=== PATIENT | female | born 1965 | race Caucasian/White ===

== ENCOUNTER → 2024-03-03 10:52 | Outpatient (REF) | payer OTHER, SELFPAY | LOC: RAD 10:52 | PROVIDERS: ATTENDING PHYSICIAN Internal Medicine Critical Care Medicine; FAMILY PHYSICIAN Family Medicine | DX: R91.1 Solitary pulmonary nodule (principal) | CPT/HCPCS: 71250 ==

== ENCOUNTER → 2024-04-17 13:36 | Outpatient (REF) | payer OTHER, SELFPAY | LOC: HWRAD 13:36 | PROVIDERS: ATTENDING PHYSICIAN Internal Medicine Critical Care Medicine; FAMILY PHYSICIAN Family Medicine | DX: R91.1 Solitary pulmonary nodule (principal) | CPT/HCPCS: 71250 ==

== ENCOUNTER 2024-04-23 06:13 | Day surgery (SDC) | payer OTHER, SELFPAY ==
[2024-04-16 08:37] LABS: Hematocrit 39.6 % (37.0-47.0); Hemoglobin 13.4 g/dL (12.0-16.0); Mean Corp Hgb Conc. 33.8 g/dL (33.0-37.0); Mean Corpuscular Hgb 30.9 pg (27.0-31.0); Mean Corpuscular Volume 91.2 fL (81.0-99.0); Platelet Count 406 10^3/uL (130-400); Red Blood Cell Count 4.34 10^6/uL (4.20-5.40)
[2024-04-16 08:48] LABS: INR 0.87; PT 12.1 Sec (11.4-14.6)
[2024-04-16 09:07] LABS: Blood Urea Nitrogen 17 mg/dl (7-17); Carbon Dioxide 24 mmol/L (22-30); Chloride 103 mmol/L (98-107); Glucose 95 mg/dl (70-99); Potassium 4.7 mmol/L (3.5-5.1); Sodium 139 mmol/L (135-145); eGFR > 60.00
[2024-04-16 13:37] VITALS: BMI 21.0
[2024-04-23 08:30] VITALS: BMI 20.2
[2024-04-23 08:35] VITALS: BP 167/96
[2024-04-23 08:47] VITALS: BMI 20.2
[2024-04-23 10:31] VITALS: BP 143/76; BP 167/96
[2024-04-23 10:45] VITALS: BP 139/84
[2024-04-23 11:24] VITALS: BP 143/74
[2024-04-23 11:41] VITALS: BP 150/81
== END 2024-04-23 11:42 | disposition home or self-care (01) ==
LOC: SDS 06:13
PROVIDERS: ATTENDING PHYSICIAN Internal Medicine Critical Care Medicine; FAMILY PHYSICIAN Family Medicine
DX: R91.1 Solitary pulmonary nodule (principal); R59.0 Localized enlarged lymph nodes; C34.11 Malignant neoplasm of upper lobe, right bronchus or lung
CPT/HCPCS: 31629; 31624; 31623; 31627; 31654; 88173; 88305; 36415; 71045; 76000; 80048; 81459; 85027; 85610; 85730; 87015; 87070; 87102; 87116; 87205; 88112; 88333; 88341; 88342; 93005; C1887

== ENCOUNTER 2024-06-11 08:02 | Inpatient (IN) | payer OTHER, SELFPAY ==
[2024-06-04 08:31] VITALS: BMI 21.3
[2024-06-04 09:08] LABS: % Basophils 1.3 % (0-2); % Eosinophils 1.5 % (0-6); % Immature Granulocytes 0.3 % (0-0.5); % Lymphocytes 19.5 % (20.5-51.1); % Monocytes 6.9 % (1.7-9.3); % Neutrophils 70.5 % (42.2-75.2); Absolute Basophils 0.1 10^3/uL (0-0.2); Absolute Eosinophils 0.2 10^3/uL (0-0.7); Absolute Lymphocytes 2.1 10^3/uL (1.2-3.4); Absolute Monocytes 0.7 10^3/uL (0.1-0.6); Absolute Neutrophils 7.5 10^3/uL (1.4-6.5); Hematocrit 38.4 % (37.0-47.0); Hemoglobin 13.1 g/dL (12.0-16.0); Mean Corp Hgb Conc. 34.1 g/dL (33.0-37.0); Mean Corpuscular Hgb 30.9 pg (27.0-31.0); Mean Corpuscular Volume 90.6 fL (81.0-99.0); Mean Platelet Volume 9.5 fL (7.4-10.4); Nucleated Red Blood Cells % 0 %; Platelet Count 403 10^3/uL (130-400); Red Blood Cell Count 4.24 10^6/uL (4.20-5.40); Red Cell Dist. Width 12.9 % (11.5-14.5); White Blood Cell Count 10.7 10^3/uL (4.8-10.8)
[2024-06-04 09:08] LABS: Urine Albumin Negative (Neg - Trace); Urine Bilirubin Negative (Negative); Urine Character Clear (Clear); Urine Color Yellow; Urine Glucose Negative (Negative); Urine Ketone Negative (Negative); Urine Leukocyte Negative (Negative); Urine Nitrite Negative (Negative); Urine Occult Blood Negative (Negative); Urine Specific Gravity 1.005 (<1.030); Urine Urobilinogen Negative (Neg - 1+)
[2024-06-04 09:18] LABS: INR 0.96; PT 13.1 Sec (11.4-14.6)
[2024-06-04 09:19] LABS: APTT 31.3 Sec (23.4-35.0)
[2024-06-04 09:38] LABS: ALT (SGPT) 25 U/L (0-35); AST (SGOT) 32 U/L (14-36); Albumin 4.9 g/dl (3.5-5.0); Alkaline Phosphatase 92 U/L (38-126); Blood Urea Nitrogen 14 mg/dl (7-17); Calcium 10.3 mg/dl (8.4-10.2); Carbon Dioxide 27 mmol/L (22-30); Chloride 99 mmol/L (98-107); Direct Bilirubin 0.1 mg/dl (0.0-0.4); Estimated Creatinine Clearance 83 ml/min; Glucose 115 mg/dl (70-99); Potassium 4.8 mmol/L (3.5-5.1); Sodium 136 mmol/L (135-145); Total Protein 7.5 g/dl (6.3-8.2); eGFR > 60.00
--- NOTE | 2024-06-04 09:48 | CM ---
Chart reviewed. Met with the patient and her in PAT. Patient is a CT RN, independent of ADLS, lives with her in a 3 [address], 3 KATHYA, 0 DME. Reviewed preoperative and postoperative instructions and restrictions, along with showering
instructions. Gave patient 2 soaps. Patient is agreeable to a visit by CT Transitional Care RN. Plan is for the patient to return home with CT Transitional Care RN.
[2024-06-04 10:00] LABS: Glycohemoglobin (HgbA1c) 5.3 % (4.0-5.6)
[2024-06-11] VITALS (18 sets, daily range): BP systolic 101–174; BP diastolic 65–130; BMI 20.7
--- NOTE | 2024-06-11 08:45 | PTCARENOTE ---
PT admitted clipped & prep'd, admission completed, consents signed, h&P in chart, ABO sent to lab, awaiting OR call.
[2024-06-11] MEDS: BACTROBAN 2% OINTMENT 1 APPLIC NASAL (08:54)
--- NOTE | 2024-06-11 11:17 | W.CVOR.SURPR ---
CVOR Surgeon Immed Pre Op
-
I have examined this patient prior to performance of the scheduled procedure.
The patient's condition is unchanged from the time of the dictated/written History and
Physical and the patient is able to undergo the scheduled procedure.
RUL + Ln dissection
[2024-06-11 12:40] LABS: Urine Albumin 1+ (Neg - Trace); Urine Bilirubin Negative (Negative); Urine Character Clear (Clear); Urine Color Yellow; Urine Glucose Negative (Negative); Urine Ketone Negative (Negative); Urine Leukocyte Negative (Negative); Urine Nitrite Negative (Negative); Urine Occult Blood Negative (Negative); Urine Urobilinogen Negative (Neg - 1+)
[2024-06-11 12:57] LABS: Urine Bacteria Few (Negative); Urine Mucus Few; Urine Red Blood Cell 0-2 /HPF (0-2); Urine White Cell 0-2 /HPF (0-5)
[2024-06-11] MEDS: TYLENOL PO (14:43)
--- NOTE | 2024-06-11 14:43 | CON.INTV ---
Consultation
Consultation Request
Date/Time Consultation Requested: 06/11/2024 - 1430
Date/Time Consultation Performed: 06/11/2024 - 1440
Requesting Provider: JIMY Hunter
Performing Provider: Dr. Lui
Reason for Consultation: s/p right upper lobectomy
Medical History
-
Chief Complaint: Elective right upper lobectomy
History of Present Illness:
58-year-old female with a past medical history of right upper lobe pulmonary adenocarcinoma, hypertension, history of tobacco use and anxiety who presents for elective right upper lobectomy. Patient follows with us in the [facility] office with last
visit on 04/19/[address] Mary. A prior LDCT chest at [facility] revealed a 1.4 x 1.5 x 1.4 cm right upper lobe nodule. [facility] PET/CT on 03/22/2024 showed a 1 cm bilobed lesion within the posterior right upper lobe demonstrating
mild hypermetabolic activity which increases on delayed imaging and is suspicious for pulmonary malignancy. There was no mediastinal, hilar or axillary hypermetabolic activity. CT chest on 04/17/2024 showed interval increase in size of the
spiculated bilobed nodule in the posterior right upper lobe. Patient underwent a robotic bronchoscopy on 04/23/2024 and pathology of the RUL brushing, TBNA + TBBX were consistent with pulmonary adenocarcinoma. Patient saw CT surgery on 05/23/[address] Lee. She was continuing to smoke at that time. Surgical resection was discussed at that visit and patient agreed to this procedure. Today she underwent robotic assisted thoracic surgery right upper lobectomy with radical lymph node
dissection, with pexy of the right middle lobe to right lower lobe. Patient tolerated the procedure well with no complications and was transferred to the CVICU postoperatively, with power bender operator/pulmonary services consulted for additional
management/recommendations.
When I saw the patient, she had already been extubated in the PACU. She had some right-sided chest pain but was given pain medications and pain was now markedly improved. She is currently saturating 97% on 2 L/min nasal cannula, heart rate 87, BP
via A-line: 127/59 and BP via NIBP: 117/65. Patient's , Paulie, at bedside. All questions were answered. Patient was still lethargic from the procedure, but still easily arousable and answering my questions appropriately.
PMHx: Right upper lobe pulmonary adenocarcinoma diagnosed via robotic bronchoscopy on 04/23/2024, tobacco smoker, hypertension
PSHx: Laparotomy (1983)
Past Medical History
Past Medical History: Other (Above as per HPI)
Past Surgical History: Other (Above as per HPI)
Social History
Tobacco: Smoker (<0.5 PPD X 40 years)
Alcohol: Occasional (Wine + light beer socially during the weekend and sometimes during the week)
Drug: None
Personal:
Living: With Family
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
Family History
Family History: Cancer (Father: Colon cancer; mother: Right eye cancer s/p eye removal) and Hypertension (Mother)
Allergies / Home Medications
Allergies
Allergy/AdvReac Type Severity Reaction Status Date / Time
No Known Allergies Allergy Verified 05/30/24 15:27
Home Medications
�Medication �Instructions �Recorded �Confirmed �Last Taken �Type
alprazolam 0.25 mg tablet (Xanax) 0.25 mg PO BID Mental 05/30/24 05/30/24 Unknown History
Health/Anxiety
Review of Systems
-
History Source: Patient
All other systems: Negative unless noted
Vitals / Labs / Diagnostic Testing
Vital Signs
Temp Pulse Resp Pulse Ox
98.2 F 91 16 99
06/11/24 08:30 06/11/24 08:30 06/11/24 08:30 06/11/24 08:30
Lab Data
06/04/24 08:41
06/04/24 08:40
Diagnostic Testing:
Physical Exam
-
HEENT: Normocephalic and Anicteric
Cardiovascular: S1/S2 and Peripheral Edema (negative)
Respiratory: Wheeze (negative), Rales (negative), Rhonchi (negative), Non-Labored Respirations and Other (Right-sided chest tube X1)
GI: Soft, Non Distended, Non Tender and Normal Bowel Sounds
Neurology: Awake, Alert and Tremors (negative)
Skin: Warm and Dry
General: Respiratory Distress (negative), Pain (Right-sided chest pain), Chills (negative) and Sweats (negative)
Assessment
-
Assessment: 58-year-old female with a past medical history of right upper lobe pulmonary adenocarcinoma, hypertension, history of tobacco use and anxiety who presents for elective right upper lobectomy. Patient follows with us in the [facility] office
with last visit on 04/19/[address] Mary. A prior LDCT chest at [facility] revealed a 1.4 x 1.5 x 1.4 cm right upper lobe nodule. [facility] PET/CT on 03/22/2024 showed a 1 cm bilobed lesion within the posterior right upper lobe
demonstrating mild hypermetabolic activity which increases on delayed imaging and is suspicious for pulmonary malignancy. There was no mediastinal, hilar or axillary hypermetabolic activity. CT chest on 04/17/2024 showed interval increase in size
of the spiculated bilobed nodule in the posterior right upper lobe. Patient underwent a robotic bronchoscopy on 04/23/2024 and pathology of the RUL brushing, TBNA + TBBX were consistent with pulmonary adenocarcinoma. Patient saw CT surgery on
05/23/[address] Lee. She was continuing to smoke at that time. Surgical resection was discussed at that visit and patient agreed to this procedure. Today she underwent robotic assisted thoracic surgery right upper lobectomy with radical lymph
node dissection, with pexy of the right middle lobe to right lower lobe. Patient tolerated the procedure well with no complications and was transferred to the CVICU postoperatively, with power bender operator/pulmonary services consulted for additional
management/recommendations.
Chronic conditions ONLINE CONTENT DEVELOPER: Right upper lobe pulmonary adenocarcinoma diagnosed via robotic bronchoscopy on 04/23/2024, tobacco smoker, hypertension
Impression:
#Early-stage right upper lobe pulmonary adenocarcinoma diagnosed via robotic bronchoscopy on 04/23/2024 now s/p RATS-right upper lobectomy with radical LN dissection (POD #0)
#History of tobacco use
#Hypertension
#Anxiety
Plan:
Patient was extubated s/p procedure in the PACU
Titrate supplemental O2 flow rate to maintain SpO2 >90-94%
prn nebulized bronchodilators - not currently bronchospastic
Encourage incentive spirometer use q1hr while awake
Maintain MAP>65
Replete electrolytes with K>4, Mg>2
Monitor chest tube output (right pleural chest tube)
Pain control
Monitor hemoglobin
Monitor platelet count and coags
Transfuse blood products as needed to maintain Hb>7g/dL, plt>50k (given post-operative status)
CT surgery managing chest tubes
Monitor blood sugar to maintain euglycemia with goal BG 140-180
Would use ISS to maintain BG at goal as above
Aspiration precautions
DVT prophylaxis
Early nutrition
Early mobilization
Critical care statement: A total of 38 minutes of critical care time was provided for this patient today. This includes management of ventilator, spontaneous breathing trial, arterial blood gases, pressors, of unstable vital signs, evaluation of the
patient at bedside, reviewing the patient's pertinent medical records including radiographs, microbiology, laboratory evaluations, and discussion with primary team and critical care nursing.
--- NOTE | 2024-06-11 14:51 | W.PN.CT.SURG ---
CT Surgery Operative Note
-
THORACIC SURGERY OPERATIVE REPORT
Preoperative Diagnosis: Pulmonary adenocarcinoma with right upper lobe
Postoperative Diagnosis: Same
Procedure(s) Performed:
1. Robotic assisted thoracic surgery [RATS] right upper lobectomy
2. Radical lymph node dissection
3. Pexy of the right middle lobe to right lower lobe
4. Intercostal nerve block performed by anesthesia preoperatively
Date of Surgery: 06/11/2024
Comorbidities:
1. Pulmonary adenocarcinoma
2. Hypertension
3. History of smoking
4. Anxiety
Attending Surgeon: Raúl Lee MD, MS
Assistants: Raúl Emmanuel PA-C (present and necessary to first aid nurse, exchanging robotic instruments, retraction, suction, exposure, suture management, and wound closure under my direction)
Anesthesiology: Jed Gutierres MD and Nicole Curry CRNA
Scrub and Circulating RNs: Angela Ho RN, Tamra Araujo RN
Anesthesia: Dual Lumen GETA
EBL: 50 cc
Products: None
Indication(s) for Procedures: This is a 58-year-old female with a history of smoking who had an increase in size of a speculated bilobed nodule of the right upper lobe. Endoluminal bronchoscopy performed came back with pulmonary adenocarcinoma with
negative lymph nodes. She was referred to my office for surgical resection
Findings: There were no obvious intrathoracic lesions concerning for metachronous disease. She had beautifully developed oblique and horizontal fissures. The lung was dissected circumferentially starting at the inferior pulm ligament and working
clockwise. In order to gain exposure to the pulmonary confluence and the pulmonary arteries, the right upper lobe pulmonary veins were divided first. This was followed by division of a singular ascending branch and the truncus branch heading up
towards the right upper lobe. The bronchus was then clamped and test inflation performed demonstrated unobstructed flow to the remaining right lower lobe right middle lobes. At the conclusion of the case, there was no significant air leak in the
chamber and no loss on tidal volumes on ventilation.
Specimen(s):
Station 9, x 3 nodes
Station 10, x 2 nodes
Station 11, x 1 nodes
Station 7, x 1 nodes
Right Upper Lobe
Description of Procedure: The patient was taken to the operating room. Induction via general anesthesia with endotracheal intubation was performed and peripheral venous access and arterial monitoring were inserted. Their identity and procedure to be
performed were verified and they were positioned with the right side up on the operating table. The patient was then prepped and draped in a sterile fashion. A preoperative time-out was performed with all members of the team present. A Veress
needle was used to insufflate the chest after isolating the lung. An 8 mm port was placed in the midaxillary line at approximately the eighth intercostal space and confirmed to be intrathoracic without significant pulmonary injury. The chest was
surveyed for any evidence of metastatic disease. Patient tolerate insufflation without complication. 2 additional 12 mm trocars were placed on either side under camera guidance and a third 8 mm trocar was placed along the back. A 12 mm tax accounting assistant
port was placed in the 11th intercostal space above the insertion of the diaphragm.
The thoracic cavity was inspected for evidence of metastatic disease. None was observed. We started with mobilization of the inferior pulmonary ligament. We worked our way clockwise dissecting out the hilum and harvest any lymph nodes identified.
The fissure between the right upper and right middle lobe was developed using a green load stapler. The pulmonary arteries and veins leading to the right upper lobe were identified and skeletonized. They were sequentially divided with a white load
stapler. I clamped the bronchus and performed a test inflation which demonstrated unobstructed flow into the remaining right middle and right lower lobes. The specimen was displaced toward the apex while a chest tube was inserted and placed
laterally towards the apex. CoSeal was used to reinforce the staple lines and hilum. The right upper lobe was then placed into a specimen bag and extracted from the chest cavity. After confirming hemostasis, the lung was fully inflated and all
ports were removed. Incisions were closed in 3 layers including the fascia, dermal, and epidermis. Additional local anesthesia was injected into all incision sites. The skin wound was cleansed and sealed with Dermabond glue.
All instrument, sponge, and needle counts were confirmed to be correct x 2 at the end of the operation. The patient was transferred to the cardiac intensive care unit extubated in critical but stable condition.
I, Dr. Raúl Lee, was present, scrubbed for, and performed all critical elements of this procedure.
Raúl Lee MD, MS
Cardiothoracic Surgeon
[facility]
This operative dictation was created using the [employer] dictation system. Please excuse any grammatical, typographical, or 'sound alike' errors
[2024-06-11] MEDS: DEMEROL 12.5 MG IV (15:33)
[2024-06-11] MEDS: DILAUDID 0.5 MG IV ×5 (15:40→20:40)
[2024-06-11] MEDS: DILAUDID 0.25 MG IV ×2 (16:29→22:40)
[2024-06-11] MEDS: HEPARIN 5000 UNITS SC ×2 (17:25→23:46)
[2024-06-11] MEDS: NEURONTIN 100 MG PO ×2 (17:26→22:27)
--- NOTE | 2024-06-11 17:45 | PTCARENOTE ---
Pt received from PACU; AAOx3 Spontaneous response to RN, follows commands; Pupils round, reactive, and equal; NS rhythm on monitor; VSS; DP and radial pulses present; Lungs clear/diminished CTx1 to waterseal draining bloody drainage - no air leak,
tidaling, or crepitus noted; Normoactive BS; skinR chest puncture sights CDI; A-line in left radial artery - line zeroed and level; PIVx1; see worklist for detailed assessment
[2024-06-11] MEDS: ZOFRAN 4 MG IV (19:03)
[2024-06-11] MEDS: TORADOL 15 MG IV (20:01)
[2024-06-11] MEDS: ANCEF 5 IV (20:10)
[2024-06-11] MEDS: SENOKOT 8.6 MG PO (20:11)
[2024-06-11] MEDS: LOPRESSOR 12.5 MG PO (20:12)
[2024-06-11] MEDS: MYLICON 80 MG PO (20:54)
--- NOTE | 2024-06-11 21:00 | PTCARENOTE ---
Report received from Kj GRIMALDO. Walking rounds done. Pt with nausea. Zofran 4 mg IV at 1912-given. Pt helped to BSC to void 75 mls of clear, yellow urine. Pt helped back to bed. Bladder scanned for urine retention. No urine in bladder post void. Pt
c/o sharp 9/[address] site pain. Toradol 15 mg IV at 1999. Followed by Dilaudid 0.5 mg IV at 2039. Pt with continued, mild nausea. Simethicone given as ordered at 2049 (see JUN).
Pt awake, alert, oriented x 4. Speech clear. Moves all extremities with equal strength x 4. Pt was on 2L. Increased to 4L/NC due to sats in 80's while briefly on room air x 1. CDB, IS, and flutter valve encouraged. BBS present. More decreased to R
base. R lateral CT x 1. To water seal. + tidaling. No air leak. + crepitus adjacent to R superior anterior incision. Incisions x 4 to R post/anter-lateral chest REQUIREMENTS MANAGER, glued, approximated. Belly soft, round, nontender. Hypoactive bs x 4. at
bedside and went home for evening. Ongoing plan of care.
[2024-06-11] MEDS: TYLENOL 1000 MG PO (22:27)
[2024-06-11] MEDS: XANAX 0.25 MG PO (22:28)
[2024-06-12] VITALS (16 sets, daily range): BP systolic 98–159; BP diastolic 62–95; BMI 21.1
[2024-06-12] MEDS: DILAUDID 0.5 MG IV (00:26)
--- NOTE | 2024-06-12 00:30 | PTCARENOTE ---
Pt with continued sharp R lateral CP. Rating it 8/ pain. Dilaudid 0.25 mg IV at 2240. Pt also requested her Xanax 0.25 mg po. Given at 2228. Pt helped to BSC to void 50 mls urine. PA made aware of small void amounts. Pt helped back to bed. L
radial A-line d/c'ed per order and per protocol. Pressure dressing applied. CHG bath given. Pt with continued sharp R lat CP, 11/11. Discussed with KAMINI. Dilaudid 0.5 mg IV given at 0030. Pt attempting to go to sleep. Ongoing plan of care.
--- NOTE | 2024-06-12 01:09 | W.PN.CT ---
Today's Communication / Plan
-
Plan:
-No major issues overnight. Hemodynamically and neurologically intact
-Chest tube transitioned to water seal postop
-Remains on water seal, + tidaling, no air leak noted, drained 95/125 in 12/24hrs
-I cannot appreciate a ptx on CxR this AM on my review, follow up official report
-Will consider clamping chest tube today for possible d/c
-Wean off of o2
-Encourage smoking cessation
-OOB into chair/Ambulate
-F/U pathology
-D/C'd Lopressor and started on Toprol XL 12.5 QD d/t bradycardia of 49 bpm overnight
-Noted to be hyponatremic and hyperkalemic this AM, will give Lasix and repeat BMP, will consider Lokelma
Assessment / Plan
-
Assessment:
-S/p Robotic assisted thoracic surgery [RATS] right upper lobectomy/ Radical lymph node dissection/Pexy of the right middle lobe to right lower lobe, by Dr. Lee, 06/11/24, pod#1
-Pulmonary adenocarcinoma
-Hypertension
-Current tobacco abuse (stopped 2 wks prior to surgery, 0.5 PPD x 40 yrs)
-Anxiety
-S/p Laparotomy, 1983
-Acute postop hyponatremia,134
-Acute postop hyperkalemia, 5.7
Discussed patient care with: Nursing, Respiratory Therapy, Pharmacy and Care Team
Subjective
Procedure
-S/p Robotic assisted thoracic surgery [RATS] right upper lobectomy/ Radical lymph node dissection/Pexy of the right middle lobe to right lower lobe, by Dr. Lee, 06/11/24
-
Date of Service: June 12, 2024
Pt c/o incisional pain, otherwise feels well
Objective Data
-
PT 13.1 Sec (11.4-14.6) 06/04/24 08:40
INR 0.96 06/04/24 08:40
APTT 31.3 Sec (23.4-35.0) 06/04/24 08:40
Vital Signs
Vital Signs
Temp Pulse Resp BP Pulse Ox
98.6 F 73 24 129/70 99
06/11/24 23:00 06/12/24 00:00 06/12/24 00:00 06/12/24 00:00 06/12/24 00:00
CT Intake/Output/Weight
06/11/24 06/11/24 06/12/24
06:59 18:59 06:59
Intake Total 100 / 650 550 / 650
Output Total 30 / 225 195 / 225
Balance 70 / 425 355 / 425
SaO2: 99 (2L)
Physical Exam
-
General: Awake, Oriented and AOx3
Cardiovascular: Regular rate & rhythm, No Murmurs, No Rub and No Gallop
Respiratory: Decreased Breath Sounds (on right, otherwise clear)
Sternum: Stable
Incision: Clean, Dry, Intact and Dressing Intact
Extremities: No Edema
Data Reviewed
-
Lab Results: Results Reviewed
Medications: Active Meds Reviewed
Chest X-Ray: Report Reviewed and Image Reviewed
ECG: Report Reviewed and Image Reviewed
[2024-06-12] MEDS: ANCEF 5 IV ×2 (04:12→12:14)
[2024-06-12] MEDS: TORADOL 15 MG IV ×2 (04:13→12:34)
--- NOTE | 2024-06-12 04:30 | PTCARENOTE ---
Labs drawn and sent. IS and flutter valve done. IS peak 1250 mls. Toradol 15 mg IV for pain given.
[2024-06-12 05:29] LABS: Hematocrit 34.3 % (37.0-47.0); Hemoglobin 11.5 g/dL (12.0-16.0); Mean Corp Hgb Conc. 33.5 g/dL (33.0-37.0); Mean Corpuscular Hgb 31.1 pg (27.0-31.0); Mean Corpuscular Volume 92.7 fL (81.0-99.0); Mean Platelet Volume 9.9 fL (7.4-10.4); Platelet Count 332 10^3/uL (130-400); Red Cell Dist. Width 13.1 % (11.5-14.5); White Blood Cell Count 14.1 10^3/uL (4.8-10.8)
[2024-06-12 05:54] LABS: Blood Urea Nitrogen 19 mg/dl (7-17); Calcium 9.8 mg/dl (8.4-10.2); Carbon Dioxide 29 mmol/L (22-30); Chloride 100 mmol/L (98-107); Estimated Creatinine Clearance 81 ml/min; Glucose 114 mg/dl (70-99); Magnesium 2.2 mg/dl (1.6-2.3); Potassium 5.7 mmol/L (3.5-5.1); Sodium 134 mmol/L (135-145); eGFR > 60.00
[2024-06-12] MEDS: LASIX 40 MG IV (06:25)
[2024-06-12] MEDS: TYLENOL 1000 MG PO ×3 (06:26→22:06)
--- NOTE | 2024-06-12 07:15 | PTCARENOTE ---
Lasix 40 mg IV given per order of PA. CT clamped at 0615 per PA. Pt helped up to scale, weighed, then to recliner chair. Report to Amberly GRIMALDO this am.
--- NOTE | 2024-06-12 08:13 | W.PN.INTV ---
Today's Communication / Plan
Recommendations
Up OOB as tolerated
Pain control
Goal BG 140�180
Maintain SpO2 >90 this 94%
Follow-up right upper lobectomy pathology from 06/11/[address] chest imaging as dictated by oncology
Patient has been downgraded to CVICU�telemetry status; no additional recommendations at this time. Insurance Agency Manager/Pulmonary service will now sign off. Please reconsult if there are any additional questions/concerns, or if patient's respiratory status
deteriorates.
Assessment
-
Assessment: 58-year-old female with a past medical history of right upper lobe pulmonary adenocarcinoma, hypertension, history of tobacco use and anxiety who presents for elective right upper lobectomy. Patient follows with us in the [facility] office
with last visit on 04/19/[address] Mary. A prior LDCT chest at [facility] revealed a 1.4 x 1.5 x 1.4 cm right upper lobe nodule. [facility] PET/CT on 03/22/2024 showed a 1 cm bilobed lesion within the posterior right upper lobe
demonstrating mild hypermetabolic activity which increases on delayed imaging and is suspicious for pulmonary malignancy. There was no mediastinal, hilar or axillary hypermetabolic activity. CT chest on 04/17/2024 showed interval increase in size
of the spiculated bilobed nodule in the posterior right upper lobe. Patient underwent a robotic bronchoscopy on 04/23/2024 and pathology of the RUL brushing, TBNA + TBBX were consistent with pulmonary adenocarcinoma. Patient saw CT surgery on
05/23/[address] Lee. She was continuing to smoke at that time. Surgical resection was discussed at that visit and patient agreed to this procedure. On 06/11/2024, she underwent robotic assisted thoracic surgery right upper lobectomy with
radical lymph node dissection, with pexy of the right middle lobe to right lower lobe. Patient tolerated the procedure well with no complications and was transferred to the CVICU postoperatively, with iron worker apprentice/pulmonary services consulted for
additional management/recommendations.
Chronic conditions ACCOUNT SUPPORT REP: Right upper lobe pulmonary adenocarcinoma diagnosed via robotic bronchoscopy on 04/23/2024, tobacco smoker, hypertension
Impression:
#Early-stage right upper lobe pulmonary adenocarcinoma diagnosed via robotic bronchoscopy on 04/23/2024 now s/p RATS-right upper lobectomy with radical LN dissection (POD #1)
#History of tobacco use - quit on 05/23/2024
#Hypertension
#Anxiety
Plan:
Patient was extubated s/p procedure in the PACU on 06/11/2024
She is currently on room air � maintain SpO2 >90-94%
prn nebulized bronchodilators - not currently bronchospastic
Encourage incentive spirometer use q1hr while awake
Maintain MAP>65
Replete electrolytes with K>4, Mg>2
Monitor chest tube output (right pleural chest tube - to be removed today)
Pain control
Monitor hemoglobin
Monitor platelet count and coags
Transfuse blood products as needed to maintain Hb>7g/dL, plt>50k (given post-operative status)
CT surgery managing chest tubes
Follow-up pathology from the OR yesterday
Monitor blood sugar to maintain euglycemia with goal BG 140-180
Would use ISS to maintain BG at goal as above
Aspiration precautions
DVT prophylaxis
Early nutrition
Early mobilization
Patient has been downgraded to CVICU�telemetry status; no additional recommendations at this time. Insurance Agency Manager/Pulmonary service will now sign off. Thank you for allowing us to be involved in the care of this patient. Please reconsult if there
are any additional questions/concerns, or if patient's respiratory status deteriorates.
Total time spent today was 58 minutes for this encounter. Time includes reviewing laboratory test/imaging results, reviewing pertinent medical records, obtaining and reviewing medical history, performing an appropriate exam, ordering medications,
tests and procedures. Time also includes documentation of this encounter, coordinating patient care and communicating with other healthcare professionals. Total time does not include separately billed tests performed on this date of service.
Subjective Dataa
Subjective Data
Date of Service:
Date of Service: June 12, 2024
Chief Complaint: Insurance Agency Manager Follow Up
Subjective:
Patient was seen and evaluated today at bedside. She has some pain on the right side of her ribs. Heart rate 83, BP 143/85. On room air breathing comfortably, saturating 98%. She denies VEGA, abdominal pain, nausea, vomiting, fevers or chills.
Review of Systems
General: Other (Negative unless mentioned above)
Objective Data
Data Reviewed
Vital Signs / I&O / Oxygen:
Vital Signs
Temp Pulse Resp BP Pulse Ox
98.7 F 85 16 126/77 98
06/12/24 08:05 06/12/24 08:05 06/12/24 08:05 06/12/24 08:00 06/12/24 08:10
Intake and Output
06/11/24 06/12/24 06/13/24
06:59 06:59 06:59
Intake Total 650 / 650
Output Total 250 / 250 525 / 525
Balance 400 / 400 -525 / -525
SaO2 98
Nasal Cannula flow liters per 4
minute
Physical Exam
General: Respiratory Distress (negative), Pain (Right-sided rib pain), Chills (negative) and Sweats (negative)
HEENT: Normocephalic and Anicteric
Cardiovascular: S1-S2 and Peripheral Edema (negative)
Respiratory: Wheeze (negative), Rhonchi (negative), Accessory Resp Muscle Use (negative), Stridor (negative), Chest Tube (Right-sided pleural chest tube x1) and Other (Coarse breath sounds heard bilaterally)
GI: Soft, Non Distended, Non Tender and Normal Bowel Sounds
Neurology: AO x 3 and Tremors (negative)
Skin: Warm, Dry, Cyanosis (negative) and Jaundice (negative)
Labs/Micro/Reports
Lab Data
06/12/24 04:37
[2024-06-12] MEDS: HEPARIN 5000 UNITS SC ×2 (08:18→15:53)
[2024-06-12] MEDS: LIDOCAINE 4% PATCH 1 PATCH TOPICAL (08:19)
[2024-06-12] MEDS: TOPROL XL 12.5 MG PO (08:19)
[2024-06-12] MEDS: NEURONTIN 100 MG PO ×3 (08:19→22:06)
[2024-06-12] MEDS: MIRALAX PO (08:27)
[2024-06-12] MEDS: SENOKOT PO (08:28)
--- NOTE | 2024-06-12 08:32 | PTCARENOTE ---
Patient received from shift supervisor melting resting oob in chair, AAO x 3, states pain controlled at this time. NSR via cm, SaO2 @ 98% on RA. R lateral chest tube to pleurevac, clamped. Procedural sites x 4 to R lat, stable. Patient updated to plan of care
for the day, in agreement. See work list for full assessment and interventions performed.
[2024-06-12 10:44] LABS: Blood Urea Nitrogen 19 mg/dl (7-17); Carbon Dioxide 28 mmol/L (22-30); Chloride 96 mmol/L (98-107); Estimated Creatinine Clearance 72 ml/min; Glucose 120 mg/dl (70-99); Potassium 4.4 mmol/L (3.5-5.1); Sodium 132 mmol/L (135-145); eGFR > 60.00
--- NOTE | 2024-06-12 11:45 | PTCARENOTE ---
VS obtained, stable. R lateral chest tube d/c'd by BUFFY, patient tolerated well. at bedside.
--- NOTE | 2024-06-12 11:46 | CM ---
Chart reviewed. Patient with CT clamped. Patient is independent of ADLS, lives with her in a [address], 3 [address], 0 DME. Plan is for the patient to return home with CT Transitional RN. CM to follow
[2024-06-12] MEDS: ROXICODONE 2.5 MG PO (12:21)
--- NOTE | 2024-06-12 12:51 | W.PN.ANS.POP ---
Anesthesia Post Operative
- Anesthesia Post Op Note
Vital Signs Stable-See Nursing Note: Yes
Airway Patent: Yes
Adequate Pain Control: Yes
Change in Mental Status: No
Current Postoperative Nausea & Vomiting: No
Anesthesia Complications: No
General Anesthetic Recall: No
Unplanned Admission: No
Post Op Hydration Adequate: Yes
[2024-06-12] MEDS: MIRALAX 17 GRAMS PO (15:53)
--- NOTE | 2024-06-12 15:58 | PTCARENOTE ---
VS obtained, assessment stable. Patient remains oob in chair, ambulatory ad alison in room. States pain controlled. at bedside visiting.
[2024-06-12] MEDS: FLEXERIL 10 MG PO (17:43)
[2024-06-12] MEDS: SENOKOT 8.6 MG PO (20:44)
[2024-06-12] MEDS: DILAUDID 0.25 MG IV (20:45)
--- NOTE | 2024-06-12 21:00 | PTCARENOTE ---
Assumed care of pt from dayshift RN. Walking rounds completed. Pt AAOx4. SR on the tele monitor. HR 60-70s. Tachy w/ activity. BP stable. Palpable pulses throughout. Pt 98% on RA. Right lung base diminished. Deep breathing and IS encouraged. Abdomen
soft/nontender. +gas. Pt reports no BM. Pt voiding ad alison. Right lateral chest incisions approximated. Right lateral CT dressing C/D/I. See MAR for pain medication administration. See worklist for full nursing assessment and interventions. Call
pizarro within reach.
[2024-06-13 00:09] VITALS: BP 130/72
[2024-06-13] MEDS: HEPARIN 5000 UNITS SC ×2 (00:09→07:38)
--- NOTE | 2024-06-13 00:49 | PTCARENOTE ---
No acute change in assessment. Pt SR on the tele monitor. HR 70s. BP stable. Pt 96% on RA. All surgical sites stable. Call pizarro within reach.
[2024-06-13 04:11] VITALS: BP 130/85
[2024-06-13 04:22] VITALS: BMI 20.9
--- NOTE | 2024-06-13 04:45 | PTCARENOTE ---
No change in assessment. Pt VSS. Labs drawn and sent. Pt OOB to void and walk around room. No c/o pain at this time. Pt repositioned back into bed. Call pizarro within reach.
[2024-06-13 05:03] LABS: Blood Urea Nitrogen 16 mg/dl (7-17); Calcium 9.8 mg/dl (8.4-10.2); Carbon Dioxide 29 mmol/L (22-30); Chloride 97 mmol/L (98-107); Estimated Creatinine Clearance 82 ml/min; Glucose 96 mg/dl (70-99); Potassium 4.6 mmol/L (3.5-5.1); Sodium 132 mmol/L (135-145); eGFR > 60.00
--- NOTE | 2024-06-13 06:26 | W.PN.CT ---
Today's Communication / Plan
-
-pod #2
-no issues overnight, less pain, would like to go home
-CT was dcd 06/12
-cxr is stable
-follow Na- 132 today (132 on 06/12 and 134 on 06/11)
-likely d/c home
Assessment / Plan
-
Assessment:
-S/p Robotic assisted thoracic surgery [RATS] right upper lobectomy/ Radical lymph node dissection/Pexy of the right middle lobe to right lower lobe, by Dr. Lee, 06/11/24, pod#2
-Pulmonary adenocarcinoma
-Hypertension
-Current tobacco abuse (stopped 2 wks prior to surgery, 0.5 PPD x 40 yrs)
-Anxiety
-S/p Laparotomy, 1984
-Acute postop hyponatremia,132
-Acute postop hyperkalemia, 5.7
Discussed patient care with: Nursing and Care Team
Subjective
Procedure
-S/p Robotic assisted thoracic surgery [RATS] right upper lobectomy/ Radical lymph node dissection/Pexy of the right middle lobe to right lower lobe, by Dr. Lee, 06/11/24
-
Date of Service: June 13, 2024
Objective Data
-
Lab Results
06/12/24 04:37
06/13/24 04:18
PT 13.1 Sec (11.4-14.6) 06/04/24 08:40
INR 0.96 06/04/24 08:40
APTT 31.3 Sec (23.4-35.0) 06/04/24 08:40
Vital Signs
Vital Signs
Temp Pulse Resp BP Pulse Ox
99.5 F 72 16 130/85 96
06/13/24 04:13 06/13/24 05:45 06/13/24 04:13 06/13/24 04:11 03/12/25 04:[address] Intake/Output/Weight
06/12/24 06/12/24 06/13/24
06:59 18:59 06:59
Intake Total 550 / 650
Output Total 220 / 250 525 / 525
Balance 330 / 400 -525 / -525
SaO2: 96
Physical Exam
-
General: Awake and AOx3
Cardiovascular: Regular rate & rhythm, No Murmurs and No Rub
Respiratory: Decreased Breath Sounds
Incision: Clean, Dry and Intact
Extremities: No Edema
Abdomen: soft, nontender, nondistended, + bowel sounds
Data Reviewed
-
Lab Results: Results Reviewed
Medications: Active Meds Reviewed
Chest X-Ray: Report Reviewed and Image Reviewed
ECG: Report Reviewed and Image Reviewed
[2024-06-13] MEDS: TYLENOL 1000 MG PO (07:24)
[2024-06-13] MEDS: LIDOCAINE 4% PATCH 1 PATCH TOPICAL (07:37)
[2024-06-13] MEDS: MIRALAX 17 GRAMS PO (07:37)
[2024-06-13] MEDS: FLEXERIL 10 MG PO (07:38)
[2024-06-13] MEDS: NEURONTIN 100 MG PO (07:38)
[2024-06-13 07:39] VITALS: BP 150/85
[2024-06-13] MEDS: SENOKOT 8.6 MG PO (07:39)
[2024-06-13] MEDS: TOPROL XL 12.5 MG PO ×2 (07:39→11:30)
--- NOTE | 2024-06-13 07:48 | PTCARENOTE ---
Received pt from [employer] shift lead RN; pt AAOx3 and resting comfortably in bed; NSR on monitor and VSS; PIV x1 patent; Lungs diminished; IS to 1000; positive bowel sounds; pt voiding clear yellow urine; palpable pulses throughout; no edema noted; all
surgical sites C/D/I; see nursing documentation for further details.
[2024-06-13] MEDS: MOTRIN 200 MG PO (08:28)
--- NOTE | 2024-06-13 11:15 | W.DCSUMMARY ---
Discharge Summary
Discharge Data
Date of Admission: 06/11/24
Date of Discharge: 06/13/24
-
Pending Results: No
Hospital Course
Primary care physician: Truman Ramires
Outpatient shoe parts molder: Elayne Infante
Inpatient consultants: Pulmonary bed and breakfast operator
Procedures:
1. Right upper lobe lobectomy
Primary Diagnosis:
1. Pulmonary adenocarcinoma with right upper lobe
Secondary Diagnoses:
1. Postoperative hyperkalemia
HPI: 58-year-old female was electively admitted on 06/11/2024 for right upper lobectomy due to adenocarcinoma of the right upper lobe.
Hospital course: Patient underwent robotic assisted thoracic surgery [RATS] right upper lobectomy, radical lymph node dissection, and pexy of the right middle lobe to right lower lobe by Dr. Raúl Lee. Patient received no intraoperative blood
products and was extubated in the operating room. Chest tube was placed to waterseal with no pneumothorax. Potassium level of 5.7 noted on postoperative day 1. Patient received 40 mg of IV Lasix and repeat potassium level decreased to 4.4. Chest
x-ray completed with chest tube clamped reported no pneumothorax. Therefore chest tube was removed and follow-up x-ray again reported no pneumothorax. Due to pain level reported 7/10, patient was kept in hospital and encouraged to accept pain meds
when offered. Flexeril dose was increased to 10 mg every 8 as needed. Patient slept well overnight and pain level decreased to a 3�4/10. Sinus rhythm in the 80s with PACs. Toprol dose increased from 12.5 to 25 mg daily with resultant heart rate
decreased to 76 and stable blood pressure. Patient deemed stable for discharge to home.
Home medication changes:
Discharge Plan
-
Patient Disposition: Home (Routine Discharge)
Discharge Diagnosis/Procedures: Right upper lobectomy + lymph node dissecstion
Condition: Good
Diet: No restrictions
Activity: No strenuous activity
Driving Restrictions: Not until seen by your Dr
Bathing Restrictions: OK to Shower
Specialty Instructions: Weigh Daily- Call MD for wt gain/loss 3 lbs overnight/5 lbs in 1 week
Referrals:
CT Transitional Care Nurse [Outside] (The Cardiothoracic Transitional Care Nurse will call you to set up a visit in 1-2 days.)
Truman Ramires MD [Family Provider] -
Raúl Lee MD [Active] - 07/02/24 1:00 pm
Prescriptions:
New
acetaminophen 325 mg Tablet
650 mg PO Q4HPRN PRN (Reason: mild pain,headache,temp >101F ) Qty: 0 0RF
gabapentin 100 mg Capsule
100 mg PO TID Qty: 30 0RF
cyclobenzaprine 10 mg Tablet
10 mg PO Q8HPRN PRN (Reason: muscle spasm) Qty: 20 0RF
ibuprofen 200 mg Tablet
200 mg PO Q6HPRN PRN (Reason: incisional pain) Qty: 30 0RF
metoprolol succinate 25 mg Tablet Extended Release 24 Hr
25 mg PO DAILY Qty: 30 0RF
oxycodone 5 mg Tablet
5 mg PO Q4HPRN PRN (Reason: severe pain) Qty: 20 0RF
Continued
alprazolam [Xanax] 0.25 mg Tablet
0.25 mg PO BID
Care Plan Goals
Care Plan Goals:
Problem: Readiness for enhanced knowledge related to diagnosis and treatment plan
Goal: Understand your diagnosis and treatment plan needs, including medications if applicable.
Instructions: Know your diagnosis, underlying causes and treatment plan options, including medications if applicable. Consult with your health care team to learn about your diagnosis and treatment plan, including medications if applicable.
Discharge Date and Time
Print Language: KENYAN
[2024-06-13 11:30] VITALS: BP 121/71
--- NOTE | 2024-06-13 12:28 | PTCARENOTE ---
Assessment unchanged; NSR on monitor and VSS; pt ambulating hallways with .
--- NOTE | 2024-06-13 13:17 | PTCARENOTE ---
Discharge instructions gone over with pt and ; all questions answered; IV and electric gas appliances demonstrator and removed; pt transported via wheelchair to discharge with home.
== END 2024-06-13 15:36 | disposition home or self-care (01) | DRG 164 ==
LOC: CVICU 08:02
PROVIDERS: Nurse Practitioner; ADMITTING PHYSICIAN Thoracic Surgery (Cardiothoracic Vascular Surgery); FAMILY PHYSICIAN Family Medicine; OTHER PHYSICIAN Internal Medicine Critical Care Medicine
PROC: 07T74ZZ Resection of Thorax Lymphatic, Percutaneous Endoscopic Approach (ICD-10-PCS; 2024-06-11)
PROC: 8E0W4CZ Robotic Assisted Procedure of Trunk Region, Percutaneous Endoscopic Approach (ICD-10-PCS; 2024-06-11)
PROC: 0BTC4ZZ Resection of Right Upper Lung Lobe, Percutaneous Endoscopic Approach (ICD-10-PCS; 2024-06-11)
DX: C34.11 Malignant neoplasm of upper lobe, right bronchus or lung (principal); E87.1 Hypo-osmolality and hyponatremia; F41.9 Anxiety disorder, unspecified; I10 Essential (primary) hypertension; F17.210 Nicotine dependence, cigarettes, uncomplicated; E87.5 Hyperkalemia; Z79.899 Other long term (current) drug therapy
CPT/HCPCS: 88305; 88309; 32505; 36415; 71045; 80048; 80053; 81003; 81015; 82248; 83036; 83735; 85025; 85027; 85610; 85730; 86850; 86900; 86901; 86920; 87070; 93005

== ENCOUNTER → 2024-08-31 13:33 | Outpatient (REF) | payer OTHER, SELFPAY ==
[2024-08-31 14:16] LABS: Blood Urea Nitrogen 12 mg/dl (7-17)
== END ==
LOC: RAD 13:33
PROVIDERS: ATTENDING PHYSICIAN Internal Medicine Critical Care Medicine; FAMILY PHYSICIAN Family Medicine
DX: R06.09 Other forms of dyspnea (principal); Z01.812 Encounter for preprocedural laboratory examination
CPT/HCPCS: 36415; 71275; 82565; 84520; Q9967

== ENCOUNTER → 2025-01-19 09:57 | Outpatient (REF) | payer OTHER, SELFPAY | LOC: RAD 09:57 | PROVIDERS: ATTENDING PHYSICIAN Internal Medicine Critical Care Medicine; FAMILY PHYSICIAN Family Medicine | DX: C34.91 Malignant neoplasm of unspecified part of right bronchus or lung (principal) | CPT/HCPCS: 71250 ==